=== PATIENT | female | born 1970 | race Caucasian/White ===

== ENCOUNTER 2016-07-12 09:36 | Emergency (ER) | payer MEDICAID ==
[~2016-07-12] VITALS: Wt 64.0 kg
[~2016-07-12 09:36] MED LIST: DOCU-144 PO; FER325 PO; IBUP-1542 PO
--- NOTE | 2016-07-12 10:42 | ERD ---
ER Documentation Chief Complaint Date/Time DATE: 07/12/16 TIME: 10:38 Chief Complaint NON TRAUMATIC LEFT ARM PAIN AND CHEST PAIN FOR THEPAST FEW WKS. NO SOB HPI This is a 45-year-old female who presents the emergency department today complaining of some chest pain, shortness of breath at night and left arm pain for the past 3 weeks. States she has taken Tylenol with no improvement in the pain. States that her left arm feels weak and the pain goes all the way up to her neck. 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 Denies any fevers or chills, nausea or vomiting. ROS All systems reviewed and are negative except as per history of present illness. Medications Home Meds Active Scripts Cyclobenzaprine Hcl* (Cyclobenzaprine Hcl*) 10 Mg Tablet, 10 MG PO QHS, #7 TAB Prov:MICHAEL HERNÁNDEZ PA-C 07/12/16 Naproxen* (Naprosyn*) 500 Mg Tablet, 500 MG PO BID Y for PAIN AND/OR INFLAMMATION, #30 TAB Prov:MICHAEL HERNÁNDEZ PA-C 07/12/16 Tramadol HCl (Tramadol HCl) 50 Mg Tablet, 50 MG PO Q4 Y for PAIN, #20 TAB Prov:MICHAEL HERNÁNDEZ PA-C 07/12/16 Docusate Sodium* (Colace*) 100 Mg Capsule, 100 MG PO TID, #30 CAP Prov:KRYSTLE THOMASON NP 12/12/15 Ferrous Sulfate* (Ferrous Sulfate*) 325 Mg Tabec, 325 MG PO BID, #60 TAB Prov:KRYSTLE THOMASON NP 12/12/15 Ibuprofen* (Motrin*) 600 Mg Tab, 600 MG PO Q6H Y for PAIN AND OR ELEVATED TEMP, #30 TAB Prov:KRYSTLE THOMASON NP 12/12/15 Reported Medications [none] Unknown Strength No Conflict Check 12/12/15 Allergies Allergies: Coded Allergies: No Known Drug Allergy (Verified Allergy, Unknown, 01/13/10) Uncoded Allergies: NKA (Allergy, Mild, 01/13/10) PMhx/Soc History of Surgery: Yes (C-SECTIONS X5) Anesthesia Reaction: No Hx Neurological Disorder: No Hx Respiratory Disorders: No Hx Cardiac Disorders: No Hx Psychiatric Problems: No Hx Miscellaneous Medical Probl: No Hx Alcohol Use: No Hx Substance Use: No Hx Tobacco Use: No Physical Exam Vitals Vital Signs Date Time Temp Pulse Resp B/P Pulse Ox O2 Delivery O2 Flow Rate FiO2 07/12/16 09:42 98.7 75 20 129/58 98 Physical Exam Const: No acute distress Head: Atraumatic Eyes: Normal Conjunctiva ENT: Normal External Ears, Nose and Mouth. Neck: Full range of motion..~ No meningismus. Tenderness left- sided paraspinals. Resp: Clear to auscultation bilaterally. No absent breath sounds. No wheezing. Tenderness to palpation with compression left side of chest wall Cardio: Regular rate and rhythm, no murmurs Abd: Soft, non tender, non distended. Normal bowel sounds Skin: No petechiae or rashes Ext: No cyanosis, or edema. Full active range of motion left arm with pain at full flexion and trapezius muscle. Pulses 2+. Distal neurovascularly intact. 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 Left arm with tenderness to palpation medial aspect of elbow and volar aspect of wrist Neur: Awake and alert Psych: Normal Mood and Affect Results 24 hrs Current Medications Medications (Trade) Dose Ordered Sig/Jovan Route PRN Reason Start Time Stop Time Status Last Admin Dose Admin Tramadol HCl (Ultram) 50 mg ONCE ONCE PO 07/12/16 11:00 07/12/16 11:01 DC 07/12/16 11:23 DIAGNOSTIC IMAGING REPORT Patient: VIDYA CASTILLO : 1970 Age: 45 Sex: F [id number] [id number] DOS: 07/12/16 0000 Ordering MD: MICHAEL HERNÁNDEZ PA-C Location: [facility] Room/Bed: PROCEDURE: XR Chest. CLINICAL INDICATION: chest pain TECHNIQUE: Single frontal view of the chest was obtained COMPARISON: None FINDINGS: The heart and mediastinum are within normal limits. There is mild left lower lobe linear atelectasis. The lungs are otherwise clear. There is no pleural effusion or pneumothorax. RPTAT: AA IMPRESSION: Mild left lower lobe linear atelectasis. .Tyson Dodd MD, MD Date Time Electronically viewed and signed by .Tyson Dodd MD, MD on 07/12/2016 11: 25 .S/ CC: MICHAEL HERNÁNDEZ PA-C DIAGNOSTIC IMAGING REPORT Patient: VIDYA CASTILLO : 1970 Age: 45 Sex: F MR #: [id number] DOS: 07/12/16 0000 Ordering MD: MICHAEL HERNÁNDEZ PA-C Location: [facility] Room/Bed: PROCEDURE: XR Cervical Spine. CLINICAL INDICATION: pain TECHNIQUE: AP, lateral and odontoid views of the cervical spine were performed. The images were reviewed on a PACS workstation. COMPARISON: None. FINDINGS: The vertebral body alignment, height and osseous mineralization are normal. The intervertebral disc spaces are well maintained. There are no abnormal calcifications. The prevertebral soft tissues are normal. No radiopaque foreign bodies are identified. There is no acute fracture or subluxation. RPTAT: AA IMPRESSION: Normal cervical spine. .Tyson Dodd MD, MD Date Time Electronically viewed and signed by .Tyson Dodd MD, MD on 07/12/2016 11: 25 .S/ CC: MICHAEL HERNÁNDEZ PA-C Procedures/MDM Is a 45-year-old female who presents the emergency department today complaining of chest pain, some shortness of breath at night and some left arm pain for the past 3 weeks. On physical exam patient had tenderness to palpation the left side of her chest. Given her symptoms of shortness of breath at night it did obtain a chest x-ray. An EKG was done in triage EKG read and interpreted by Dr. Patel rate [address] elevation. No QT prolongation. Normal sinus rhythm. Low suspicion for acute LA, PE, pericarditis. Chest x-ray shows mild left lower lobe linear atelectasis. Lungs are otherwise clear. No pleural effusion or pneumothorax. Low suspicion for pneumonia, PE, abscess, pneumothorax per Patient was also complaining of some neck pain and left-sided arm pain and therefore I did obtain cervical spine films. Patient has no left arm swelling and good pulses and I do not feel that she requires a Doppler ultrasound at this time. Low suspicion for DVT, PE. Patient is afebrile and otherwise well- appearing. She is not tachycardic. Her oxygen saturation is 98%. Cervical spine films are unremarkable. There is no acute fracture dislocation. There are no abnormal calcifications. Vertebral body alignment and height are normal. Intervertebral disc spaces are well-maintained Patient did have some chest pain with palpation in her symptoms at this time appear most consistent with costochondritis. Patient also had a significant amount of muscle tenderness and spasm from her neck down towards her arm and her symptoms at this time is consistent with strain versus muscle spasm. I do not feel the patient requires further workup or imaging at this time. Patient was given tramadol here in the emergency department and reported feeling significantly better. She will be given a prescription for tramadol, Naprosyn and Flexeril for home. At this time the patient is stable for discharge and outpatient management. Patient should follow up with their PCP in the next 1-2 days. They may return to the emergency department sooner for any persistent or worsening of symptoms. Patient understood and agreed with the plan. Departure Diagnosis: Primary Impression: Multiple complaints Condition: MICHAEL Ramirez PA-C Jul 12, 2016 10:42
[2016-07-12] MEDS ORDERED: traMADol 50 MG TAB PO ONE (11:00)
--- NOTE | 2016-07-12 11:25 | RADRPT ---
PROCEDURE: XR Chest. CLINICAL INDICATION: chest pain TECHNIQUE: Single frontal view of the chest was obtained COMPARISON: None FINDINGS: The heart and mediastinum are within normal limits. There is mild left lower lobe linear atelectasis. The lungs are otherwise clear. There is no pleural effusion or pneumothorax. RPTAT: AA IMPRESSION: Mild left lower lobe linear atelectasis. .Tyson oDdd MD, MD Date Time Electronically viewed and signed by .Tyson Dodd MD, on 07/12/2016 11:25 .S/
--- NOTE | 2016-07-12 11:25 | RADRPT ---
PROCEDURE: XR Cervical Spine. CLINICAL INDICATION: pain TECHNIQUE: AP, lateral and odontoid views of the cervical spine were performed. The images were re viewed on a PACS workstation. COMPARISON: None. FINDINGS: The vertebral body alignment, height and osseous mineralization are normal. The intervertebral disc spaces are well maintained. There are no abnormal calcifications. The prevertebral soft tissues are normal. No radiopaque foreign bodies are identified. There is no acute fracture or subluxation. RPTAT: AA IMPRESSION: Normal cervical spine. .Tyson Dodd MD, MD Date Time Electronically viewed and signed by .Tyson Dodd MD, MD on 07/12/2016 11:25 .S/
[2016-07-12] MEDS ORDERED: TRAM50TA2 PO (11:35)
[2016-07-12] MEDS ORDERED: NAPR-260 PO (11:35)
[2016-07-12] MEDS ORDERED: CYCL-319 PO (11:36)
== END 2016-07-12 11:51 | disposition home or self-care (01) ==
LOC: FTE 09:36
DX: R07.9 Chest pain, unspecified (principal); R06.02 Shortness of breath; M79.602 Pain in left arm; R53.1 Weakness
CPT/HCPCS: 71010; 72040; 93005; Z7502; Z7610

== ENCOUNTER 2017-02-11 16:26 | Emergency (ER) | payer MEDICAID ==
[~2017-02-11] VITALS: Ht 165.1 cm; Wt 63.5 kg
[~2017-02-11 16:26] MED LIST changes: +CYCL-319 PO; +NAPR-260 PO; +TRAM50TA2 PO
[2017-02-11 16:29] VITALS: Ht 165.1 cm; Wt 63.5 kg
[2017-02-11] MEDS ORDERED: KETOROLAC 30 MG INJ IM STA (16:56)
[2017-02-11] MEDS ORDERED: IBUP-1542 PO (18:04)
[2017-02-11] MEDS ORDERED: CYCL-319 PO (18:04)
--- NOTE | 2017-02-11 18:08 | ERD ---
ER Documentation Chief Complaint Date/Time DATE: 02/11/17 TIME: 18:06 Chief Complaint Complains HPI 46-year-old female presents with neck pain that radiates down her left upper extremity with intermittent paresthesias. This is been going on for 3 weeks. She has been seen here in the past. She denies any trauma. Pain is sharp. She has not tried taking any Tylenol Motrin or any other pain or anti- inflammatory medications. She has no chest pain or shortness of breath. No headache or dizziness. No nausea or vomiting. ROS All systems reviewed and are negative except as per history of present illness. Medications Home Meds Active Scripts Ibuprofen* (Motrin*) 600 Mg Tab, 600 MG PO Q6, #30 TAB Prov:MARYCRUZ SILVESTRE PA-C 02/11/17 Cyclobenzaprine Hcl* (Cyclobenzaprine Hcl*) 10 Mg Tablet, 10 MG PO QHS, #20 TAB Prov:MARYCRUZ SILVESTRE PA-C 02/11/17 Cyclobenzaprine Hcl* (Cyclobenzaprine Hcl*) 10 Mg Tablet, 10 MG PO QHS, #7 TAB Prov:MICHAEL HERNÁNDEZ PA-C 07/12/16 Naproxen* (Naprosyn*) 500 Mg Tablet, 500 MG PO BID Y for PAIN AND/OR INFLAMMATION, #30 TAB Prov:MICHAEL HERNÁNDEZ PA-C 07/12/16 Tramadol HCl (Tramadol HCl) 50 Mg Tablet, 50 MG PO Q4 Y for PAIN, #20 TAB Prov:MICHAEL HERNÁNDEZ PA-C 07/12/16 Docusate Sodium* (Colace*) 100 Mg Capsule, 100 MG PO TID, #30 CAP Prov:KRYSTLE THOMASON NP 12/12/15 Ferrous Sulfate* (Ferrous Sulfate*) 325 Mg Tabec, 325 MG PO BID, #60 TAB Prov:KRYSTLE THOMASON NP 12/12/15 Ibuprofen* (Motrin*) 600 Mg Tab, 600 MG PO Q6H Y for PAIN AND OR ELEVATED TEMP, #30 TAB Prov:KRYSTLE THOMASON NP 12/12/15 Reported Medications [none] Unknown Strength No Conflict Check 12/12/15 Allergies Allergies: Coded Allergies: No Known Drug Allergy (Verified Allergy, Unknown, 01/13/10) PMhx/Soc History of Surgery: Yes (C-SECTIONS X5) Anesthesia Reaction: No Hx Neurological Disorder: No Hx Respiratory Disorders: No Hx Cardiac Disorders: No Hx Psychiatric Problems: No Hx Miscellaneous Medical Probl: Yes (urinary tract infections) Hx Alcohol Use: No Hx Substance Use: No Hx Tobacco Use: No Smoking Status: Never smoker FmHx Family History: No diabetes Physical Exam Vitals Vital Signs Date Time Temp Pulse Resp B/P Pulse Ox O2 Delivery O2 Flow Rate FiO2 02/11/17 16:29 98.0 67 20 126/60 98 Physical Exam INITIAL VITAL SIGNS: Reviewed by me GENERAL: Awake, alert and oriented x 4, well appearing, nontoxic, speaking in full sentences. No acute distress HEAD: Atraumatic NECK: Supple. No masses. Full range of motion. No meningismus. No midline tenderness. RESPIRATORY: Clear to auscultation bilaterally. Symmetric chest wall rise. No wheezing or rales. No accessory muscle use. CV: Regular rate and rhythm. No murmurs, rubs, or gallops. ABDOMEN: Soft, non-distended. Nontender. Negative Todd. Negative McBurneys point tenderness. No CVA tenderness bilaterally. No guarding. No rebound. : Deffered. EXTREMITIES: No clubbing or cyanosis. No edema. Moving all extremities normally. Lateral shoulders are full range of motion against resistance, no bony normality, no clavicular tenderness, sensation to light touch is intact BACK: No midline tenderness to palpation. No step-offs. Results 24 hrs Laboratory Tests Test 02/11/17 18:01 Bedside Glucose 87mg/dL Current Medications Medications (Trade) Dose Ordered Sig/Jovan Route PRN Reason Start Time Stop Time Status Last Admin Dose Admin Ketorolac Tromethamine (Toradol) 30 mg ONCE STAT IM 02/11/17 16:56 02/11/17 16:57 DC 02/11/17 18:03 Procedures/MDM Patient has neck and left upper extremity pain with intermittent paresthesias. This is most likely cervical radiculopathy. Patients is alert, oriented, well appearing, and in no distress with normal vital signs. There is no fever, tachycardia, or tachypnea. EKG showed no evidence of ST elevation or acute ischemic changes and was sinus bradycardia with a rate of 59. Check within normal limits. Patient was given Toradol here and discharged with ibuprofen and Flexeril. Patient counseled regarding my diagnostic impression and care plan. Prior to discharge all questions answered. Pt agrees with treatment plan and understands strict return precautions. Pt is instructed to follow up with primary care provider within 24-48 hours. Precautionary instructions provided including instructions to return to the ER if not improving or for any worsening or changing symptoms or concerns. Departure Diagnosis: Primary Impression: Cervical radiculopathy Condition: Stable Patient Instructions: Radiculopathy, Cervical Additional Instructions: Llame al doctor PAUL y abbi kathryn MICHAEL PARA DENTRO DE 1-2 ADRIAN.Dgale a la secretaria que nosotros le instruimos hacer esta michael.Avise o llame si mistry condicin se empeora antes de la michael. Regresa aqui si peor o no mejor. MARYCRUZ SILVESTRE PA-C Feb 11, 2017 18:08
== END 2017-02-11 18:31 | disposition home or self-care (01) ==
LOC: FTE 16:26
DX: M54.12 Radiculopathy, cervical region (principal)
CPT/HCPCS: 82962; 93005; 96372; J1885; Z7502

== ENCOUNTER 2017-05-21 15:15 | Emergency (ER) | END 2017-05-21 20:28 | disposition home or self-care (01) ==

== ENCOUNTER 2017-07-12 23:44 | Emergency (ER) | END 2017-07-13 06:19 | disposition home or self-care (01) ==

== ENCOUNTER 2018-11-30 12:00 | Emergency (ER) | payer MEDICAID ==
[~2018-11-30] VITALS: Ht 157.5 cm; Wt 64.9 kg
[~2018-11-30 12:00] MED LIST changes: +ACET500C5 PO; +CEPH-443 PO; -CYCL-319 PO; -DOCU-144 PO; -FER325 PO; +IBUP800T48 PO; -NAPR-260 PO; +ONDA4TAB8 PO; -TRAM50TA2 PO
[2018-11-30 12:12] VITALS: BP 125/60; PULSE 79; RESP 18; Ht 157.5 cm; Wt 64.9 kg
[2018-11-30] MEDS ORDERED: IBUPROFEN 600 MG TAB PO ONE (13:00)
--- NOTE | 2018-11-30 13:05 | ERD ---
ER Documentation Chief Complaint Chief Complaint pelvic pain has vag bleed x 2 weeks HPI Patient is a 48-year-old female, who presents the ER for concerns of pelvic pain as well as vaginal spotting for the last 2 weeks. Patient states her pelvic pain is worse in the left lower quadrant. Patient states 2 weeks ago she did have vaginal spotting intermittently resolved and now she started having spotting again. Patient reports only using one pad thus far today. Patient denies any lightheadedness, dizziness, nausea, vomiting, fevers, chills, diarrhea. Patient denies any vaginal discharge. ROS All systems reviewed and are negative except as per history of present illness. Medications Home Meds Active Scripts Ibuprofen* (Motrin*) 600 Mg Tab, 600 MG PO Q6, #30 TAB Prov:LEAH BAXTER PA-C 11/30/18 Acetaminophen* (Tylophen*) 500 Mg Capsule, 1 CAP PO Q6H PRN for PAIN AND OR ELEVATED TEMP, #30 CAP Prov:MICHAEL HERNÁNDEZ PA-C 07/13/17 Ibuprofen* (Motrin*) 600 Mg Tab, 600 MG PO Q6, #30 TAB Prov:MICHAEL HERNÁNDEZ PA-C 07/13/17 Ondansetron Hcl* (Zofran*) 4 Mg Tablet, 4 MG PO Q6H for NAUSEA AND/OR VOMITING, #30 TAB Prov:MICHAEL HERNÁNDEZ PA-C 07/13/17 Cephalexin* (Keflex*) 500 Mg Capsule, 500 MG PO QID for 7 Days, CAP Prov:MICHAEL HERNÁNDEZ PA-C 07/13/17 Ibuprofen* (Motrin*) 800 Mg Tab, 800 MG PO Q6H PRN for PAIN AND OR ELEVATED TEMP, #30 TAB Prov:RADHA ROJAS MD 05/21/17 Ibuprofen* (Motrin*) 600 Mg Tab, 600 MG PO Q6, #30 TAB Prov:MARYCRUZ SILVESTRE PA-C 02/11/17 Allergies Allergies: Coded Allergies: No Known Drug Allergy (Verified Allergy, Unknown, 05/21/17) PMhx/Soc Medical and Surgical Hx: pt denies Medical Hx, pt denies Surgical Hx History of Surgery: Yes (C-SECTIONS X5) Anesthesia Reaction: No Hx Neurological Disorder: No Hx Respiratory Disorders: No Hx Cardiac Disorders: No Hx Psychiatric Problems: No Hx Miscellaneous Medical Probl: Yes (urinary tract infections) Hx Alcohol Use: No Hx Substance Use: No Hx Tobacco Use: No Smoking Status: Never smoker FmHx Family History: No diabetes Physical Exam Vitals Vital Signs Date Temp Pulse Resp B/P (MAP) Pulse Ox O2 O2 Flow FiO2 Time Delivery Rate 11/30/18 98.6 79 18 125/60 98 12:12 (81) Physical Exam GENERAL: Well-developed, well-nourished female. Appears in no acute distress. HEAD: Normocephalic, atraumatic. EYES: Pupils are equally reactive bilaterally. EOMs grossly intact. No conjunctival erythema. ENT: Moist mucous membranes. No uvula deviation. No kissing tonsils. NECK: Supple. No meningismus. Normal range of motion of the neck. LUNG: Clear to auscultation bilaterally. No rhonchi, wheezing, rales or coarse breath sounds. HEART: Regular rate and rhythm. No murmurs, rubs or gallops. ABDOMEN: Soft, nondistended. Tender to palpation in the suprapubic and left lower quadrant. Positive bowel sounds in all four quadrants. No rebound tenderness, no guarding. (-) McBurney's point tenderness. No CVA tenderness. BACK: No midline tenderness. EXTREMITIES: Equal pulses bilaterally. No peripheral clubbing, cyanosis or edema. No unilateral leg swelling. NEUROLOGIC: Alert and oriented. Moving all four extremities without any difficul ty. Normal speech. Steady gait. SKIN: Normal color. Warm and dry. No rashes or lesions. Result Diagram: 11/30/18 1307 11/30/18 1307 Results 24 hrs Laboratory Tests Test 11/30/18 13:07 11/30/18 13:09 White Blood Count 4.9 10^3/ul Red Blood Count 4.06 10^6/ul Hemoglobin 11.9 g/dl Hematocrit 36.6 % Mean Corpuscular Volume 90.1 fl Mean Corpuscular Hemoglobin 29.3 pg Mean Corpuscular Hemoglobin Concent 32.5 g/dl Red Cell Distribution Width 13.4 % Platelet Count 258 10^3/UL Mean Platelet Volume 10.7 fl Immature Granulocytes % 0.200 % Neutrophils % 53.7 % Lymphocytes % 35.4 % Monocytes % 8.3 % Eosinophils % 1.8 % Basophils % 0.6 % Nucleated Red Blood Cells % 0.0 /100WBC Immature Granulocytes # 0.010 10^3/ul Neutrophils # 2.7 10^3/ul Lymphocytes # 1.8 10^3/ul Monocytes # 0.4 10^3/ul Eosinophils # 0.1 10^3/ul Basophils # 0.0 10^3/ul Nucleated Red Blood Cells # 0.0 10^3/ul Urine Color STRAW Urine Clarity CLEAR Urine pH 6.0 Urine Specific Stevenson 1.015 Urine Ketones NEGATIVE mg/dL Urine Nitrite NEGATIVE mg/dL Urine Bilirubin NEGATIVE mg/dL Urine Urobilinogen NEGATIVE mg/dL Urine Leukocyte Esterase NEGATIVE Nurys/ul Urine Microscopic RBC 1 /HPF Urine Microscopic WBC 0 /HPF Urine Hemoglobin 1+ mg/dL Urine Glucose NEGATIVE mg/dL Urine Total Protein NEGATIVE mg/dl Sodium Level 142 mmol/L Potassium Level 4.1 mmol/L Chloride Level 108 mmol/L Carbon Dioxide Level 26 mmol/L Anion Gap 8 Blood Urea Nitrogen 9 mg/dl Creatinine 0.63 mg/dl Est Glomerular Filtrat Rate mL/min > 60 mL/min Glucose Level 90 mg/dl Calcium Level 9.2 mg/dl Total Bilirubin 0.3 mg/dl Direct Bilirubin 0.00 mg/dl Indirect Bilirubin 0.3 mg/dl Aspartate Amino Transf (AST/SGOT) 29 IU/L Alanine Aminotransferase (ALT/SGPT) 31 IU/L Alkaline Phosphatase 94 IU/L Total Protein 7.2 g/dl Albumin 4.1 g/dl Globulin 3.10 g/dl Albumin/Globulin Ratio 1.32 Lipase 93 U/L POC Beta HCG, Qualitative NEGATIVE Current Medications Medications Dose Sig/Jovan Start Time Status Last (Trade) Ordered Route PRN Stop Time Admin Dose Reason Admin Ibuprofen 600 mg ONCE ONCE 11/30/18 DC 11/30/18 (Motrin) PO 13:00 13:07 11/30/18 13:01 Procedures/MDM MEDICAL DECISION MAKING: Patient is a 48-year-old female, past medical history of ovarian cyst, presents the ER for concerns of bilateral pelvic pain and intermittent vaginal bleeding x 2 weeks. Vital signs were reviewed. Patient was afebrile. Urine test was negative. CBC showed no evidence of systemic infection or severe anemia. CMP showed no severe electrolyte abnormalities, acidosis, alkalosis, renal injury or liver failure. UA showed no signs of acute infection or hematuria. Cervical ultrasound was unremarkable. See formal report. At this time, patient presentation is most consistent with pelvic pain. Patient advised to follow-up with [facility] [employer] for further work-up and management. Low suspicion for ectopic preg brendan, ovarian torsion, PID, tubo-ovarian abscess, fibroids, endometriosis, vulvovaginitis, uterine prolapse, nephrolithiasis, pyelonephritis, UTI, appendicitis, diverticulitis, bowel obstruction, perirectal abscess. Patient was nontoxic, [id number] prior to discharge. PRESCRIPTIONS: Ibuprofen DISCHARGE: At this time, patient is stable for discharge and outpatient management. I have instructed the patient to follow-up with his/her primary care physician in 1-2 days. I have discussed with the patient the possibility of needing to see a specialist for further workup and diagnostic studies if the pain persists. I have instructed the patient to promptly return to the ER at any time for any new or worsening symptoms including increased pain, nausea, vomiting, vaginal bleeding, weakness or fever. The patient and/or family expressed understanding of and agreement with this plan. All questions were answered. Home care instructions were provided. Disclaimer: Inadvertent spelling and grammatical errors are likely due to EHR/dictation software use and do not reflect on the overall quality of patient care. Also, please note that the electronic time recorded on this note does not necessarily reflect the actual time of the patient encounter. Departure Diagnosis: Primary Impression: Pelvic pain Condition: Fair Patient Instructions: Pelvic Pain, Unknown Cause Referrals: [facility] YOU HAVE RECEIVED A MEDICAL SCREENING EXAM AND THE RESULTS INDICATE THAT YOU DO NOT HAVE A CONDITION THAT REQUIRES URGENT TREATMENT IN THE EMERGENCY DEPARTMENT. FURTHER EVALUATION AND TREATMENT OF YOUR CONDITION CAN WAIT UNTIL YOU ARE SEEN IN YOUR DOCTORS OFFICE WITHIN THE NEXT 1-2 DAYS. IT IS YOUR RESPONSIBILITY TO MAKE AN APPOINTMENT FOR FOLOW-UP CARE. IF YOU HAVE A PRIMARY DOCTOR --you should call your primary doctor and schedule an appointment IF YOU DO NOT HAVE A PRIMARY DOCTOR YOU CAN CALL OUR PHYSICIAN REFERRAL HOTLINE AT IF YOU CAN NOT AFFORD TO SEE A PHYSICIAN YOU CAN CHOSE FROM THE FOLLOWING [facility] [address] [facility]. [facility] [address] [facility]. [facility] [address] [facility]. [facility] [address] [facility]. [facility] [address] [facility]. [facility]. [address] [facility]. [facility] YOU HAVE RECEIVED A MEDICAL SCREENING EXAM AND THE RESULTS INDICATE THAT YOU DO NOT HAVE A CONDITION THAT REQUIRES URGENT TREATMENT IN THE EMERGENCY DEPARTMENT. FURTHER EVALUATION AND TREATMENT OF YOUR CONDITION CAN WAIT UNTIL YOU ARE SEEN IN YOUR DOCTORS OFFICE WITHIN THE NEXT 1-2 DAYS. IT IS YOUR RESPONSIBILITY TO MAKE AN APPOINTMENT FOR FOLOW-UP CARE. IF YOU HAVE A PRIMARY DOCTOR --you should call your primary doctor and schedule and appointment IF YOU DO NOT HAVE A PRIMARY DOCTOR YOU CAN CALL OUR PHYSICIAN REFERRAL HOTLINE AT . IF YOU CAN NOT AFFORD TO SEE A PHYSICIAN YOU CAN CHOSE FROM THE FOLLOWING [facility] INSTITUTIONS: [facility] [address] [place] [address] [facility] [address] [place] [address] [facility] [address] [place] [address] [employer] [place] [address] [facility] [address] [place], [place] [phone] OFFICE FAX BRIE [place] [address] [place], [place] [id number] [facility] [address] [place], [place] [id number] SHAY DAMON [address] [facility], [address] [address] [address] [address] [place], [place] [phone] [facility] [address] [place], [place] [phone] [address] [facility] [address] - DR TEJADA, YASMINE [address], [facility] [address] [address] NARAYANAN, [place] [address] [facility]. [address], [facility] [address] [address] MOORE, [place] [address] [place] [address] Additional Instructions: Llame OBGYN MAANA y abbi kathryn MICHAEL PARA DENTRO DE 1-2 ADRIAN.Dgale a la secretaria que nosotros le instruimos hacer esta michael.Avise o llame si mistry condic in se empeora antes de la michael. Regresa aqui si peor o no mejor. LEAH BAXTER PA-C Nov 30, 2018 13:04
== END 2018-11-30 15:51 | disposition home or self-care (01) ==
LOC: FTE 12:00
DX: R10.2 Pelvic and perineal pain (principal)
CPT/HCPCS: 36415; 76856; 80053; 81001; 81025; 83690; 85025; Z7502; Z7610